=== PATIENT | female | born 1990 | race Caucasian/White ===

== ENCOUNTER 2016-07-23 19:25 | Emergency (ER) | payer SELFPAY ==
[2016-07-23 19:32] VITALS: TEMP 98.2
--- NOTE | 2016-07-23 19:42 | EDPHY ---
H & P Time Seen by Provider: 07/23/16 19:41 HPI/ROS: CHIEF COMPLAINT: Abdominal pain, vaginal spotting. HISTORY OF PRESENT ILLNESS: The patient is a 26-year-old female who presents after 20 minutes of left lower abdominal cramping that radiated to her left flank. This began an hour ago and quickly subsided. No abdominal or flank pain now. She has also had 3 weeks of vaginal spotting that began when her last period ended. She feels that these symptoms are similar to her past UTIs. She denies fever, vomiting, shortness of breath, or other complaints. REVIEW OF SYSTEMS: A complete 10-point review of systems was performed and is negative except for those items mentioned in the HPI. Past Medical/Surgical History: UTI, IUD. Social History: Smoker, recently moved to [place]. Smoking Status: Current every day smoker Physical Exam: General Appearance: Alert, no distress Eyes: Pupils equal and round, no conjunctival pallor or injection ENT, Mouth: Mucous membranes moist Neck: Normal inspection Respiratory: Lungs are clear to auscultation Cardiovascular: Regular rate and rhythm Gastrointestinal: Abdomen is soft and non-tender Neurological: A&O, nonfocal, normal gait Skin: Warm and dry, no rash Extremities: Nontender, no pedal edema Psychiatric: Mood and affect normal Constitutional: Initial Vital Signs Temperature (C) 36.8 C 07/23/16 19:27 Heart Rate 115 H 07/23/16 19:27 Respiratory Rate 18 07/23/16 19:27 Blood Pressure 129/81 H 07/23/16 19:27 O2 Sat (%) 95 07/23/16 19:27 O2 Delivery Mode Room Air Allergies/Adverse Reactions: No Known Allergies Allergy (Unverified 07/23/16 19:27) Medical Decision Making ED Course/Re-evaluation: 26-year-old female presents after an episode of LLQ pain that radiated to her left flank. It began an hour ago and lasted 20 minutes. She has also had vaginal spotting for the last 3 weeks. She does not have a fever or nausea, however she is concerned as this feels like her previous UTIs. On exam her abdomen is soft and non-tender. We will check a urinalysis and test. ISTAT ordered as the patient states she commonly gets hypokalemic. Urinalysis is negative for infection. ISTAT returns normal potassium. is negative. The patient will be discharged home. Differential Diagnosis: Differential diagnosis includes though it is not limited to appendicitis, cholecystitis, diverticulitis, pyelonephritis, bowel perforation, small bowel obstruction. - Data Points Laboratory Results: 07/23/16 07/23/16 07/23/16 20:25 20:24 16:40 POC Hgb 15.6 gm/dL gm/dL (12.3-15.9) POC Hct 46 % % (35.5-47.5) POC Sodium 147 mEq/L H mEq/L (134-144) POC Potassium 3.5 mEq/L mEq/L (3.3-5.0) POC Chloride 106 mEq/L mEq/L (96-108) POC BUN 7 mg/dL mg/dL (7-23) POC Creatinine 0.9 mg/dL mg/dL (0.6-1.2) POC Glucose 100 mg/dL mg/dL (70-100) Beta HCG, Qual NEGATIVE Urine Color PALE YELLOW Urine Appearance CLEAR Urine pH 5.0 (5.0-7.5) Ur Specific [place] 1.006 (1.002-1.030) Urine Protein NEGATIVE (NEGATIVE) Urine Ketones NEGATIVE (NEGATIVE) Urine Blood NEGATIVE (NEGATIVE) Urine Nitrate NEGATIVE (NEGATIVE) Urine Bilirubin NEGATIVE (NEGATIVE) Urine Urobilinogen NEGATIVE EU EU (0.2-1.0) Ur Leukocyte Esterase NEGATIVE (NEGATIVE) Urine Glucose NEGATIVE (NEGATIVE) Point of Care Test Results: 07/23/16 20:24 POC Sodium 147 H POC Potassium 3.5 POC Chloride 106 POC BUN 7 POC Creatinine 0.9 POC Glucose 100 Departure - Departure Disposition: Home, Routine, Self-Care Clinical Impression: Abdominal pain Qualifiers: Abdominal location: left lower quadrant Qualified Code(s): R10.32 - Left lower quadrant pain Condition: Good Instructions: Abdominal Pain (ED) Additional Instructions: Follow up with a primary care provider for reevaluation. If you need a primary care provider you were given the telephone number of Dr. Glover, outpatient medicine. Return to the emergency department for any serious worsening of condition. Referrals: Lora Glover, [Doctor of Osteopathy] - Follow Up Only If Needed Stand Alone Forms: Statement of Treatment Report Scribed for: Valeria Encarnacion Report Scribed by: Mayank Landry Date of Report: 07/23/16 Time of Report: 19:42 Physician Review and Approval Statement: 07/23/16 19:42 Portions of this note were transcribed by a medical physics professor. I personally performed a history, physical exam, medical decision making, and confirmed accuracy of information the transcribed note.
[2016-07-23 19:54] LABS: COLOR PALE YELLOW; LEUKOCYTE ESTERASE,URINE NEGATIVE (NEGATIVE); NITRITE,URINE NEGATIVE (NEGATIVE)
[2016-07-23 21:07] VITALS: BP 124/71; PULSE 110; RESP 16; O2SAT 97
== END 2016-07-23 21:07 | disposition home or self-care (01) ==
DX: R10.32 Left lower quadrant pain (principal); F17.200 Nicotine dependence, unspecified, uncomplicated
CPT/HCPCS: 82947-QW